=== PATIENT | female | born 1970 | race Caucasian/White ===

== ENCOUNTER 2016-08-08 22:12 | Emergency (ER) | payer BC ==
[~2016-08-08] VITALS: Ht 170.2 cm; Wt 72.6 kg
[2016-08-08] MEDS ORDERED: ONDANSETRON ODT 4 MG TAB.RAPDIS ONE (22:43)
[2016-08-08] MEDS ORDERED: ONDANSETRON ODT 4 MG TAB.RAPDIS SL ONE (22:45)
--- NOTE | 2016-08-08 23:09 | NUR ---
Patient discharged to home in stable conditon. Written and verbal after care instructions given. Patient verbalizes understanding of instructions.
== END 2016-08-08 23:24 | disposition home or self-care (01) ==
LOC: ER 22:12
DX: F12.929 Cannabis use, unspecified with intoxication, unspecified (principal); R11.0 Nausea; F41.9 Anxiety disorder, unspecified; Z88.1 Allergy status to other antibiotic agents
CPT/HCPCS: 93005; 99283; A4663; Q0162